=== PATIENT | male | born 1950 | race Caucasian/White ===

== ENCOUNTER 2018-02-02 20:30 | Observation (INO) ==
[2018-02-02] MEDS ORDERED: KETOROLAC 30 MG/1 ML VIAL IV STA (21:00)
[2018-02-02] MEDS ORDERED: ASPIRIN 325 MG TABLET PO STA (21:00)
[2018-02-02] MEDS ORDERED: PANTOPRAZOLE 40 MG VIAL IV STA (21:02)
[2018-02-02 21:25] LABS: Basophils % 0.4 % (0.0-0.8); Eosinophils % 0.4 % (0.00-10.9); Hematocrit 34.3 VOL% (42.0-52.0); Hemoglobin 10.1 GM/DL (14.0-18.0); Immature Granulocytes % 0.4 %; Immature Granulocytes Absolute 0.02 #; Lymphocytes # 1.8 10*3/uL (1.4-4.0); Mean Corpuscular HGB Conc 29.4 GM/DL (32-36); Mean Corpuscular Hemoglobin 25 PG (27-34); Mean Corpuscular Volume 86.2 FL (87-102); Mean Platelet Volume 12.1 FL (9.6-12.0); Monocytes # 0.3 10*3/uL (0.11-0.8); Monocytes % 5.4 % (1.7-12.7); Neutrophils # 3.1 10*3/uL (1.4-7.4); Neutrophils % 58.4 % (38.7-73.9); Red Blood Count 3.98 MC/CUMM (3.8-5.5); Red Cell Distribution Width 16.2 % (9.3-17.3); White Blood Count 5.2 T/CUMM (4-12)
[2018-02-02 21:36] LABS: Platelet Count 86 T/CUMM (130-400)
[2018-02-02 21:47] LABS: Alanine Aminotransferase 34 U/L (16-61); Albumin 3.3 G/DL (3.4-5.0); Alkaline Phosphatase 109 U/L (45-117); Aspartate Amino Transferase 24 U/L (0-37); Bilirubin,Total < 0.39 MG/DL (0.2-1.0); Blood Urea Nitrogen 17 MG/DL (7-18); Calcium 8.5 MG/DL (8.5-10.1); Glucose 106 MG/DL (74-106); Osmolality,Calculated 280.4 MOS/KG (273-304); Potassium 3.7 MMOL/L (3.5-5.1); Sodium 140 MMOL/L (136-145); Total Protein 7.5 G/DL (6.4-8.3)
[2018-02-02] MEDS ORDERED: ONDANSETRON ODT 4 MG TABLET PO STA (22:03)
[2018-02-02] MEDS ORDERED: ONDANSETRON 4 MG/2 ML VIAL IV PRN (23:18)
[2018-02-02] MEDS ORDERED: ACETAMINOPHEN 325 MG TABLET PO PRN (23:18)
[2018-02-02] MEDS ORDERED: POTASSIUM CHLORIDE 20 MEQ TABLET PO PRN (23:18)
[2018-02-02] MEDS ORDERED: KETOROLAC 30 MG/1 ML VIAL IM ONE (23:41)
[2018-02-03 01:05] LABS: Risk Ratio 3.79; VLDL CHOLESTEROL 35.4 MG/DL
[2018-02-03] MEDS: MORPHINE 4 MG/1 ML VIAL IV PRN ×3 (04:19→17:39)
[2018-02-03 05:06] LABS: Apearance,Urine CLEAR (Clear); Bilirubin,Urine Negative (Negative); Blood, Urine Negative (Negative); Glucose,Urine (UA) Negative (Negative); Hyaline Casts,Urine 3 /LPF (0-3); Ketones,Urine Negative (Negative); Mucus,Urine Few /LPF (Occasional); Nitrite,Urine Negative (Negative); Protein,Urine Negative; RBC,Urine 1 /HPF (0-4); Squamous Epithelial Cell,Urine Occasional /HPF (0-10); Urine Color Yellow (Yellow); Urine Specific Gravity 1.016 (1.001-1.035); Urine Urobilinogen < 2.0 EU/DL (0.2-1.0); WBC,Urine 3 /HPF (0-6)
[2018-02-03] MEDS: ENOXAPARIN 40 MG/0.4 ML SYRINGE SUBCUT SCH (08:21)
[2018-02-03] MEDS: ASPIRIN EC 325 MG TABLET PO SCH (08:21)
[2018-02-03] MEDS ORDERED: REGADENOSON 0.4 MG/5 ML SYRINGE IV ONE (09:32)
[2018-02-03] MEDS: METOPROLOL SUCCINATE XL 25 MG TABLET PO SCH (11:28)
[2018-02-03] MEDS: FERROUS SULFATE 325 MG TABLET PO SCH (11:28)
[2018-02-03] MEDS: ALBUTEROL/IPRATROPIUM 3 ML NEB RESP TX PRN (20:04)
[2018-02-03] MEDS: PANTOPRAZOLE 40 MG TABLET PO SCH (20:25)
[2018-02-03] MEDS: cephALEXin 500 MG CAPSULE PO SCH (21:13)
[2018-02-04] MEDS: ALBUTEROL/IPRATROPIUM 3 ML NEB RESP TX PRN ×2 (00:32→07:18)
[2018-02-04 05:27] LABS: Basophils % 0.6 % (0.0-0.8); Eosinophils # 0.4 10*3/uL (0.0-0.87); Eosinophils % 5.7 % (0.00-10.9); Hematocrit 31.6 VOL% (42.0-52.0); Hemoglobin 9.4 GM/DL (14.0-18.0); Immature Granulocytes % 0.6 %; Immature Granulocytes Absolute 0.04 #; Lymphocytes # 2.2 10*3/uL (1.4-4.0); Lymphocytes % 32.5 % (21.2-54.2); Mean Corpuscular HGB Conc 29.7 GM/DL (32-36); Mean Corpuscular Hemoglobin 26 PG (27-34); Mean Corpuscular Volume 86.6 FL (87-102); Mean Platelet Volume 10.7 FL (9.6-12.0); Monocytes # 0.5 10*3/uL (0.11-0.8); Monocytes % 7.4 % (1.7-12.7); Neutrophils # 3.7 10*3/uL (1.4-7.4); Neutrophils % 53.2 % (38.7-73.9); Platelet Count 227 T/CUMM (130-400); Red Blood Count 3.65 MC/CUMM (3.8-5.5); Red Cell Distribution Width 16.2 % (9.3-17.3); White Blood Count 6.9 T/CUMM (4-12)
[2018-02-04 05:48] LABS: Calcium 8.8 MG/DL (8.5-10.1); Potassium 3.2 MMOL/L (3.5-5.1)
[2018-02-04] MEDS: cephALEXin 500 MG CAPSULE PO SCH (05:57)
[2018-02-04] MEDS: POTASSIUM CHLORIDE 20 MEQ TABLET PO PRN ×2 (06:19→08:27)
[2018-02-04 07:32] VITALS: BP 150/85
[2018-02-04] MEDS: PANTOPRAZOLE 40 MG TABLET PO SCH (08:22)
[2018-02-04] MEDS: ENOXAPARIN 40 MG/0.4 ML SYRINGE SUBCUT SCH (08:22)
[2018-02-04] MEDS: FERROUS SULFATE 325 MG TABLET PO SCH (08:22)
[2018-02-04] MEDS: ASPIRIN EC 325 MG TABLET PO SCH (08:22)
[2018-02-04] MEDS: METOPROLOL SUCCINATE XL 25 MG TABLET PO SCH (08:22)
[2018-02-04] MEDS ORDERED: POTASSIUM CHLORIDE 20 MEQ TABLET PO ONE (09:13)
== END 2018-02-04 10:23 | disposition home or self-care (01) ==
LOC: N.EDINP 20:30 → N.ED 20:30 → SUATTDRO 23:18 → N.TELES 23:41
PROVIDERS: ADMIT Internal Medicine; ATTEND Internal Medicine